=== PATIENT | female | born 2000 | race Two or more races ===

== ENCOUNTER → 2024-07-22 | Outpatient (CLI) | payer MEDICAID, SELFPAY ==
--- NOTE | 2024-07-22 08:30 | XR_ITS ---
Examination: Complete OB ultrasound greater than 14 weeks Date and time of exam: July 22, 2024 0839 hours INDICATIONS: Size dates discrepancy Findings: Viable intrauterine single fetus with single amniotic sac presentation cephalic Cardiac motion 130 bpm Placenta fundal grade 2 Umbilical cord insertion 3 vessel seen Amniotic fluid index 9.8 cm spine maternal left Cervix 4.8 cm Ovaries obscured by bowel gas. Composite estimated gestational age based on BPD, head circumference, abdominal circumference, femur length is 35 weeks 3 days Estimated weight 2574 g. Survey of intracranial anatomy, spinal anatomy, abdominal anatomy, four-chamber heart performed with no abnormalities identified. Impression: Viable intrauterine gestation cephalic presentation Estimated gestational age 35 weeks 3 days Estimated weight 2574 g.
== END | disposition home or self-care (01) ==
LOC: CDIM 08:11
PROVIDERS: PCP Family Medicine; Referring Provider Obstetrics & Gynecology; Visit Provider Obstetrics & Gynecology
DX: O26.843 Uterine size-date discrepancy, third trimester (principal); Z3A.35 35 weeks gestation of pregnancy
CPT/HCPCS: 76805

== ENCOUNTER 2024-07-25 00:54 | Observation (INO) | payer MEDICAID, SELFPAY ==
[2024-07-25 01:07] VITALS: BMI 31.6
[2024-07-25 01:12] VITALS: BP 113/64; PULSE 95
[2024-07-25 01:46] LABS: Collection Type, Urine Clean Catch; RBC,Urine 0 /hpf (0-3)
[2024-07-25 02:27] LABS: Bacteria,Urine 4+; Bilirubin,Urine Negative (Negative); Blood,Urine Negative (Negative); Clarity,Urine Turbid (Clear/Hazy); Color,Urine Yellow (Lt Yel-Yel); FFN Specimen Descripton Clr Colrless Aqueous; Fetal Fibronectin Negative (Negative); Glucose, Urine Negative (Negative); Hyaline Casts,Urine < 1 /hpf (0-1); Ketones,Urine Negative (Negative); Leukocyte Esterase,Urine Positive (Negative); Nitrite,Urine Positive (Negative); Protein,Urine Trace (Neg - Trace); Squamous Epithelial Cell,Urine 21 /hpf (0-5); Urobilinogen,Urine Negative mg/dL (0.0-1.0); WBC,Urine 35 /hpf (0-5)
[2024-07-25] MEDS: NITROFURANTOIN MACRO 100 MG CAPSULE PO (02:57)
[2024-07-25] MEDS: BETAMET ACET/BETAMET NA PH (Celestone) 6 MG/ML VIAL 12 MG IM (02:57)
[2024-07-25] MEDS: ACETAMINOPHEN 325 MG TABLET 650 MG PO (02:57)
== END 2024-07-25 03:27 | disposition home or self-care (01) ==
PROVIDERS: Admitting Provider Specialist; Visit Provider Specialist
DX: O26.893 Other specified pregnancy related conditions, third trimester (principal); Z3A.34 34 weeks gestation of pregnancy; M54.50 Low back pain, unspecified; R10.2 Pelvic and perineal pain; R35.0 Frequency of micturition
CPT/HCPCS: 59025; 81001; 82731; 96372; G0378; J0702; A9270

== ENCOUNTER 2024-07-26 08:05 | Outpatient (CLI) | payer MEDICAID, SELFPAY ==
[2024-07-26] VITALS (13 sets, daily range): BP systolic 95–131; BP diastolic 54–60; PULSE 81–98; RESP 16–98; TEMP 37–37.1; O2SAT 94–99; BMI 31.1
[2024-07-26] MEDS: BETAMET ACET/BETAMET NA PH (Celestone) 6 MG/ML VIAL 12 MG IM (08:48)
== END 2024-07-26 09:00 | disposition home or self-care (01) ==
LOC: S4S1 08:06 → S4SX 08:06
PROVIDERS: PCP Obstetrics & Gynecology; Referring Provider Obstetrics & Gynecology; Visit Provider Obstetrics & Gynecology
DX: Z34.83 Encounter for supervision of other normal pregnancy, third trimester (principal); Z3A.34 34 weeks gestation of pregnancy
CPT/HCPCS: 59025; 96372; J0702

== ENCOUNTER 2024-08-15 23:22 | Observation (INO) | payer MEDICAID, SELFPAY ==
[2024-08-15 23:39] VITALS: BP 109/62; PULSE 89; RESP 18; RESP 98; TEMP 36.9
[2024-08-15 23:48] VITALS: TEMP 36.9
[2024-08-16 00:29] VITALS: BMI 32.0
== END 2024-08-16 01:57 | disposition home or self-care (01) ==
PROVIDERS: Admitting Provider Student in an Organized Health Care Education/Training Program; Visit Provider Student in an Organized Health Care Education/Training Program
DX: O47.1 False labor at or after 37 completed weeks of gestation (principal); Z3A.37 37 weeks gestation of pregnancy
CPT/HCPCS: 59899

== ENCOUNTER 2024-08-16 08:35 | Inpatient (IN) | payer MEDICAID, SELFPAY ==
[2024-08-16] VITALS (95 sets, daily range): BP systolic 105–144; BP diastolic 57–85; PULSE 71–111; RESP 16–98; TEMP 36.9–37.1; O2SAT 97–100; BMI 31.7
[2024-08-16 09:34] LABS: Basophils % (Auto) 0 % (0-2.5); Eosinophils % (Auto) 0 % (0-10); Hematocrit 38.1 % (36.0-46.0); Hemoglobin 13.3 g/dL (12.0-16.0); Immature Granulocytes % (Auto) 0 % (0-0); Immature Granulocytes Auto 0.05 Thou/mm3 (0.00-0.00); Lymphocytes # (Auto) 2.4 Thou/mm3 (1.0-4.8); Lymphocytes % (Auto) 21 % (10-50); Mean Corpuscular HGB Conc 34.9 g/dl (31.0-37.0); Mean Corpuscular Hemoglobin 31.5 pg (25.0-35.0); Mean Corpuscular Volume 90 fL (80-100); Monocytes # (Auto) 0.6 Thou/mm3 (0.0-0.8); Monocytes % (Auto) 5 % (0-12); Neutrophils # (Auto) 8.5 Thou/mm3 (1.8-7.7); Neutrophils % (Auto) 73 % (37-80); Nucleated Red Blood Cell % 0 /100 WBC (0); Platelet Count 124 Thou/mm3 (140-440); RDW Standard Deviation 43.7 fL (36.4-46.3); Red Blood Count 4.22 Miln/mm3 (4.00-5.20); White Blood Count 11.7 Thou/mm3 (3.6-11.0)
[2024-08-16] MEDS: RINGERS LACTATED 1000 ML 1,000 ML 100 ML IV ×3 (09:36→12:23)
[2024-08-16] MEDS: Ampicillin Inj 2,000 MG in SODIUM CHLORIDE 0.9% (P) 100 ML 200 MG IV (09:37)
--- NOTE | 2024-08-16 10:00 | ESHP_ITS ---
Documentation for date of: 08/16/24 OB Labor/Induct. HPI History of Present Illness Chief complaint: 24 y/o 37w 6d presents to L&D in labor : 2 Para: 1 Term pregnancies: 1 pregnancies: 0 Living children: 1 History of Abortions: Spontaneous and Elective: 0 History of Vaginal deliveries: 1 History of sections: No History of : No Date of last menstrual period: 11/25/23 CHANDA: 08/31/24 Gestational Age (weeks): 37 Gestational Age (days): 6 Gestational age based on last menstrual period: 37 History of present illness: 24 y/o 37w 6d presents to L&D in labor at 4 cm vertex with bulging bag. GBS is neg. Pt has a hx of nvdx1 with a vacuum delivery. No complications in this . EFW 3400g History of Present Dating criteria: LMP confirmed by 1st trimester US Adequate Care: Yes Ultrasounds: normal 1st trimester US and normal mid trimester US Obstetrical complications: none Labs Maternal Blood Type: O Pos Labs: Positive: Rubella Titre and Negative: RPR, Hepatitis B, HIV, Chlamydia, Gonorrhea and Group Beta Strep Review of Systems Review of Systems Systems Reviewed: All systems reviewed, normal except as documented Past Medical History Surgical History SURGICAL: Negative Section Meds Home Medications and Allergies Home Medications ?Medication ?Instructions ?Recorded ?Confirmed ?Type prenat.vits,carlos,[id number] 1 tab PO QDAY 07/13/20 08/16/24 History Allergies Allergy/AdvReac Type Severity Reaction Status Date / Time pineapple Allergy Mild Flushing Verified 08/16/24 08:44 OB Exam Physical Exam Vital signs: Temp Pulse Resp BP Pulse Ox 98.4 F 81 18 116/63 99 08/16/24 08:40 08/16/24 13:23 08/16/24 08:40 08/16/24 13:23 08/16/24 13:23 Constitutional Constitutional: no acute distress Routine HEENT Exam Head: Present normocephalic and atraumatic Eye: Present EOMI, PERRL and normal accommodation ENT: Present mucous membranes moist Routine Neck Exam Neck: Present supple, full ROM and trachea midline Routine Respiratory Exam Respiratory: Absent respiratory distress Routine Cardiovascular Exam Cardiovascular: Present RRR Routine Abdominal Exam Abdominal: Present soft Comments: Gravid Uterus EFW 3400g Routine Exam External: Present normal urethra appearance; Absent lesions or lacerations Detailed Labor and Delivery Exam Dilation (cm): 4 Effacement (%): 80 Cervix position: posterior station: -2 Consistency: soft Presentation: Vertex Membranes: intact Baseline heart rate: 140 monitor accelerations: 15x15 monitor decelerations: None manager long term care variability: Moderate (11-25) Contraction frequency (min): 2-3 Contraction duration (sec): 40-60 Contraction intensity: Moderate Routine Extremities Exam Extremities: Present full ROM Routine Back/Spine/Pelvis Exam Back/Spine: Present full ROM Routine Skin Exam Skin: Present intact, dry and warm Routine Neurological Exam Neurological: Present alert, oriented X3 and CN II-XII intact Routine Psychiatric Exam Psychiatric: Present normal affect and normal thought process OB Results Labs 08/16/24 09:15 Labs: Short CBC 08/16/24 Range/Units 09:15 WBC 11.7 H (3.6-11.0) Thou/mm3 Hgb 13.3 (12.0-16.0) g/dL Hct 38.1 (36.0-46.0) % Plt Count 124 L (140-440) Thou/mm3 OB Assessment & Plan Assessment and Plan (1) Normal labor: Status: Acute (2) 37 weeks gestation of : Status: Acute Additional Plan Induction method: none Plan: consult prn Additional Plan Comment: Routine admit orders Continuous EFM Dr. Vasquez aware Anticipate
[2024-08-16 10:12] LABS: Syphilis Nonreactive (Nonreactive)
--- NOTE | 2024-08-16 13:42 | PD.LDPN ---
Documentation for date of: 08/16/24 OB Labor Progress Note Pain Control Pain control: epidural Pelvic Exam Dilation (cm): 7 Effacement (%): 80 station: 0 Amniotic membrane status: Ruptured (AROM- clear) Contractions Monitor mode: External Contraction frequency: 2-3 Contraction duration: 40-60 Contraction intensity: Moderate Status status: Category l Assessment and Plan Assessment: active labor Plan OB labor note: continuous present management Comments: Pt is progressing very well on her own AROM performed- clear fluids noted Anticipate
--- NOTE | 2024-08-16 14:10 | PD.LDPN ---
Documentation for date of: 08/16/24 OB Labor Progress Note Pain Control Pain control: epidural Pelvic Exam Dilation (cm): 10 Effacement (%): 100 station: +1 Amniotic membrane status: Ruptured (AROM- clear) Contractions Monitor mode: External Contraction frequency: 2-3 Contraction duration: 40-60 Contraction phase: Contraction Contraction intensity: Moderate Status status: Category ll Assessment and Plan Assessment: other (2nd stage) Plan OB labor note: continuous present management Comments: Pt is on left side with O2, will let the baby come down more and then start pushing Dr. Vasquez updated Anticipate
[2024-08-16] MEDS: MINERAL OIL 30 ML UDC TOP (14:30)
[2024-08-16] MEDS: OXYTOCIN in NS 20 units 20 UNIT/1,000 ML BAG 125 UNIT IV (15:16)
--- NOTE | 2024-08-16 15:42 | OBDSUM_ITS ---
Data ([facility]) Data Hx Section: No Maternal Blood Type: O Pos Rubella Titre: Positive RPR: Non-reactive Labs: Negative: RPR, Hepatitis B, HIV, Chlamydia, Gonorrhea and Group Beta Strep and Unknown: Herpes Type 1 and Herpes Type 2 : 2 Para: 1 Term: 1 : 0 Livin : 0 Delivery Data ([facility]) Labor Data Stimulated/Augmented: No Induction: No ROM Date: 08/16/24 ROM Time: 13:35 Rupture Type: AROM Amniotic Fluid: Clear Delivery Data EDC: 08/31/24 EDC calculated by:: LMP/early US confirmation Labor Onset Stage 1 Date: 08/16/24 Labor Onset Stage 1 Time: 14:00 Labor Onset Stage 2 Date: 08/16/24 Labor Onset Stage 2 Time: 14:30 Delivery Date: 08/16/24 Delivery Time: 15:13 Gestational age (weeks): 37 Gestational age (days): 6 Placenta Delivery Date: 08/16/24 Placenta Delivery Time: 15:16 Delivered by: Laurel Roman Delivery nurse: Iva Abreu Accountant Assistant at delivery: No Support person(s) at delivery: FOB Other staff at delivery: Nursery Nurse Other staff at delivery: 2nd Nurse Other staff at delivery: Anahi Contreras Other staff at delivery: Laura Neal Other staff at delivery: Dr. Vasquez Delivery Method Delivery: Vaginal Delivery Type: Spontaneous Presentation: Vertex Position: OP Anesthesia Type Primary Anesthesia: Epidural Delivery Room Medications Intrapartum Medications: Antibiotics (x1) Other Intrapartum Medications: Yes Post Delivery Medications N/A: No Placenta Placenta Delivery: Spontaneous Placenta Cultures Obtained: No Placenta Sent for Examination: No Cord Sample: Cord Blood Obtained Episiotomy Episiotomy: None EBL Estimated blood loss (ml): 200 Umbilical Cord Umbilical Vessels: 3 Nuchal Cord: x2 Tightly Body Cord: Not Applicable Additional Procedures Patient pushed for about [address] Vasquez was called in due to heart decelerations. After intrauterine resuscitation measures Dr. Parker showed up for delivery and we began pushing again and patient had an of a viable male infant. delivered in OP presentation with a tight nuchal cord x 2. Reduced the nuchal cord. 's anterior and posterior shoulder delivered with gentle downward traction and the body without complications. Infant placed on mother's abdomen. Vigorous cry upon delivery. Cord was clamped. Cut by FOB. Cord blood obtained. Three-vessel cord noted. Placenta expelled spontaneously and intact. No lacerations noted. Perineum intact. Excellent hemostasis achieved after vigorous fundal massage and removal of clots from the posterior fornix. IV Pitocin x 1 given and TXA x 1 given. Patient will continue the IV Pitocin to . EBL 200. Sponge and needle count correct. There and baby stable, skin to skin and bonding in LDR. Data ([facility]) Data Infant Gender: Male Weight Grams: 2720 1 Minute Total: 7 5 Minute Total: 9
[2024-08-16] MEDS: TRANEXAMIC ACID 1,000 MG IVPB 1,000 MG/100 ML BAG 200 MG IV (16:26)
[2024-08-16] MEDS: BENZO/LANO/ALOE (Dermoplast) 60 GM CAN 1 SPRAY TOP (20:47)
[2024-08-16 22:33] LABS: Basophils % (Auto) 0 % (0-2.5); Eosinophils % (Auto) 0 % (0-10); Hematocrit 34.8 % (36.0-46.0); Immature Granulocytes % (Auto) 0 % (0-0); Immature Granulocytes Auto 0.04 Thou/mm3 (0.00-0.00); Lymphocytes # (Auto) 2.7 Thou/mm3 (1.0-4.8); Lymphocytes % (Auto) 20 % (10-50); Mean Corpuscular HGB Conc 34.5 g/dl (31.0-37.0); Mean Corpuscular Hemoglobin 31.7 pg (25.0-35.0); Mean Corpuscular Volume 92 fL (80-100); Monocytes # (Auto) 0.8 Thou/mm3 (0.0-0.8); Monocytes % (Auto) 6 % (0-12); Neutrophils # (Auto) 10.1 Thou/mm3 (1.8-7.7); Neutrophils % (Auto) 74 % (37-80); Nucleated Red Blood Cell % 0 /100 WBC (0); Platelet Count 117 Thou/mm3 (140-440); RDW Standard Deviation 45.3 fL (36.4-46.3); Red Blood Count 3.79 Miln/mm3 (4.00-5.20); White Blood Count 13.7 Thou/mm3 (3.6-11.0)
[2024-08-17] VITALS: BP 116/74; PULSE 79; RESP 18; TEMP 36.8; O2SAT 98
[2024-08-17 03:30] VITALS: BP 107/70; PULSE 74; RESP 16; TEMP 36.6; O2SAT 98
[2024-08-17] MEDS: IBUPROFEN TAB 400 MG TABLET 800 MG PO (03:56)
--- NOTE | 2024-08-17 07:24 | PD.LDDS ---
DS: Providers Provider Date of admission: 08/16/24 09:03 Primary care physician: Physician No Primary/Family Admitting Provider: Madina Vasquez MD Attending Provider on Admission: Madina Vasquez MD Attending Provider on DC: Laurel Roman CNM Discharging Provider: Laurel Roman CNM Anticipated date of discharge: 08/17/24 DS: Diagnosis Discharge Diagnosis (1) Normal spontaneous vaginal delivery: Status: Acute (2) Encounter for care of lactating mother: Status: Acute (3) 37 weeks gestation of : Status: Acute (4) Normal labor: Status: Acute Problem List Completed Was Problem List Reviewed/Reconciled?: Yes Summary/Hosp Course Brief History: 24 y/o 37w 6d presents to L&D in labor at 4 cm vertex with bulging bag. GBS is neg. Pt has a hx of nvdx1 with a vacuum delivery. No complications in this . EFW 3400g 08/16/24: Patient pushed for about [address] Vasquez was called in due to heart decelerations. After intrauterine resuscitation measures Dr. Vasquez showed up for delivery and we began pushing again and patient had an of a viable male . delivered in OP presentation with a tight nuchal cord x 2. Reduced the nuchal cord. 's anterior and posterior shoulder delivered with gentle downward traction and the body without complications. placed on mother's abdomen. Vigorous cry upon delivery. Cord was clamped. Cut by FOB. Cord blood obtained. Three-vessel cord noted. Placenta expelled spontaneously and intact. No lacerations noted. Perineum intact. Excellent hemostasis achieved after vigorous fundal massage and removal of clots from the posterior fornix. IV Pitocin x 1 given and TXA x 1 given. Patient will continue the IV Pitocin to . EBL 200. Sponge and needle count correct. There and baby stable, skin to skin and bonding in LDR. 08/17/24: day 1. Patient is stable and afebrile doing well and . Denies dizziness shortness of breath. Breast-feeding well and bonding well. Eager to go home today. Patient will go home later today. Uterus is nontender fundus firm and minimal lochia. Discharge instructions given patient to follow-up with Laurel Roman CNM in 3 weeks Peripartum Data Delivery Method: Normal Vaginal Delivery Episiotomy Description: None Laceration Description: no complications: none 1: Gender: Male Disposition of : home Status at Discharge Cognitive/behavioral status at discharge: Alert and oriented x 3 Functional status at discharge: independent ambulation Overall status at discharge: patient is progressing back to baseline Time Spent with Patient Time attestation: Total time spent providing and/or coordinating discharge services: Time spent: Greater than 30 minutes Exam Vital Signs Temp Pulse Resp BP Pulse Ox 98.4 F 79 18 144/70 H 99 08/16/24 08:40 08/16/24 15:08 08/16/24 08:40 08/16/24 15:08 08/16/24 15:18 Constitutional Constitutional: no acute distress Routine HEENT Exam Head: Present normocephalic and atraumatic Eye: Present EOMI, PERRL and normal accommodation ENT: Present mucous membranes moist Routine Neck Exam Neck: Present supple, full ROM and trachea midline Routine Respiratory Exam Respiratory: Present chest non-tender, lungs clear, normal breath sounds and no resp distress Routine Cardiovascular Exam Cardiovascular: Present RRR Routine Abdominal Exam Abdominal: Present soft and normoactive bowel sounds Comments: Uterus nontender Fundus firm Routine Exam Patient deferred: external exam Routine Extremities Exam Extremities: Present full ROM, pulses intact and normal capillary refill; Absent calf tenderness or tenderness Routine Back/Spine/Pelvis Exam Back/Spine: Present full ROM Routine Skin Exam Skin: Present intact, dry and warm Routine Neurological Exam Neurological: Present alert, oriented X3 and CN II-XII intact Routine Psychiatric Exam Psychiatric: Present normal affect and normal thought process Discharge Plan Plan Patient Disposition: HOME (Self Care) Patient condition on transfer: Stable Prescriptions/Referrals Prescriptions/Med Rec: New docusate sodium [Colace] 100 mg capsule 100 mg PO BID Qty: 60 0RF ibuprofen 600 mg tablet 600 mg PO Q6H PRN (Reason: pain) Qty: 90 0RF lanolin 50 % ointment 1 applic topical TID PRN (Reason: skin irritation) Qty: 15 0RF Continued prenat.vits,carlos,[id number] Tablet 1 tab PO QDAY Referrals: No Primary/Family,Physician [Primary Care Provider] - Patient/Caregiver Discharge Instructions Meds to Beds: No Discharge Activity: activity as tolerated Other Discharge Activity Instructions:: Follow-up with Laurel Roman CNM in 3 weeks Education Materials: After a Vaginal , : Caring for Yourself Print Language: [place] Stand Alone Forms: Cheli Award Info., Patient Portal Info Letter Discharge Order Discharge Orders: Discharge (Routine); Ordered 08/17/24 Ordered By: Laurel Roman Planned Discharge Date 08/17/24
[2024-08-17 08:12] VITALS: BP 106/69; PULSE 80; RESP 18; TEMP 36.8
[2024-08-17] MEDS: DOCUSATE SOD 100 MG CAPSULE PO (09:15)
[2024-08-17 12:52] VITALS: BP 113/69; PULSE 89; RESP 18; TEMP 36.7; O2SAT 97
[2024-08-17 16:13] VITALS: BP 117/76; PULSE 67; RESP 18; TEMP 36.9; O2SAT 97
== END 2024-08-17 17:00 | disposition home or self-care (01) | DRG 560 ==
LOC: S4SX 15:37 → S4NX 18:00
PROVIDERS: Nurse Practitioner Women's Health; Admitting Provider Student in an Organized Health Care Education/Training Program; Visit Provider Student in an Organized Health Care Education/Training Program
DX: O69.1XX0 Labor and delivery complicated by cord around neck, with compression, not applicable or unspecified (principal); O76 Abnormality in fetal heart rate and rhythm complicating labor and delivery; Z37.0 Single live birth; Z3A.37 37 weeks gestation of pregnancy
CPT/HCPCS: 36415; 59409; 85025; 86780; 86850; 86900; 86901; 94762; J0290; J2590; J2795; J3010; J3490; J7120; A9270